=== PATIENT | male | born 1945 | race African-American/Black ===

== ENCOUNTER → 2016-10-02 | Outpatient (CLI) | payer OTHER ==
[2016-10-02 20:44] LABS: INR 1.35
== END ==
LOC: M WUC 18:15
PROVIDERS: ATTEND Physician Assistant
DX: Z51.81 Encounter for therapeutic drug level monitoring (principal); Z79.01 Long term (current) use of anticoagulants; I51.9 Heart disease, unspecified

== ENCOUNTER 2017-04-20 13:34 | Outpatient (RCR) | payer MEDICARE, OTHER | END 2017-04-25 | LOC: M CR 13:34 | DX: Z51.89 Encounter for other specified aftercare (principal); I50.9 Heart failure, unspecified | CPT/HCPCS: 93798 ==

== ENCOUNTER → 2017-12-26 | Outpatient (CLI) | payer MEDICARE ==
[2017-12-26 12:42] LABS: ANION GAP 10 MEQ/L (8-16); BLOOD UREA NITROGEN 19 MG/DL (7-18); CALCIUM LEVEL 9.1 MG/DL (8.8-10.2); CARBON DIOXIDE LEVEL 25 MEQ/L (21-32); CHLORIDE LEVEL 109 MEQ/L (98-107); CHOLESTEROL LEVEL 100 MG/DL (<200); CHOLESTEROL RISK RATIO 3.448 (<5); CREATININE FOR GFR 1.23 MG/DL (0.70-1.30); GLOMERULAR FILTRATION RATE > 60.0 (>42); GLUCOSE, FASTING 86 MG/DL (70-100); HDL CHOLESTEROL 29 MG/DL (>40); LDL CHOLESTEROL 56 MG/DL (<100); NON-HDL-C 71 MG/DL; POTASSIUM SERUM 4.6 MEQ/L (3.5-5.1); SODIUM LEVEL 144 MEQ/L (136-145); TRIGLYCERIDES LEVEL 76 MG/DL (<150)
== END ==
LOC: M LAB 10:56
DX: E78.2 Mixed hyperlipidemia (principal)
CPT/HCPCS: 80061

== ENCOUNTER → 2018-03-11 | Outpatient (CLI) | payer MEDICARE ==
[~2018-03-11] MED LIST: ASPI81TA85 PO; ELIQ5TAB PO; FERR325T3 PO; LASI40TA9 PO; LISI-542 PO; METO1TAB32 PO
[2018-03-11 18:44] LABS: BLOOD UREA NITROGEN 22 MG/DL (7-18); CALCIUM LEVEL 8.3 MG/DL (8.8-10.2); CARBON DIOXIDE LEVEL 27 MEQ/L (21-32); CHLORIDE LEVEL 104 MEQ/L (98-107); CREATININE FOR GFR 1.17 MG/DL (0.70-1.30); GLOMERULAR FILTRATION RATE > 60.0 (>42); GLUCOSE, FASTING 65 MG/DL (70-100); MAGNESIUM LEVEL 2.3 MG/DL (1.8-2.4); NT-PRO BNP 3659 PG/ML (<125); POTASSIUM SERUM 4.1 MEQ/L (3.5-5.1); SODIUM LEVEL 140 MEQ/L (136-145)
== END ==
LOC: M LAB 16:30
DX: I50.43 Acute on chronic combined systolic (congestive) and diastolic (congestive) heart failure (principal)

== ENCOUNTER → 2018-03-22 | Outpatient (REF) | payer MEDICARE ==
[2018-03-22 12:37] LABS: APPEARANCE, URINE CLEAR (CLEAR); BACTERIA, URINE AUTO NEGATIVE (NEGATIVE); BILIRUBIN, URINE AUTO NEGATIVE (NEGATIVE); BLOOD, URINE BLOOD NEGATIVE (NEGATIVE); COLOR, URINE STRAW (YELLOW); GLUCOSE, URINE (UA) AUTO NEGATIVE (NEGATIVE); KETONE, URINE AUTO NEGATIVE (NEGATIVE); LEUKOCYTE ESTERASE, URINE AUTO NEGATIVE (NEGATIVE); MUCUS, URINE SMALL (NEGATIVE); NITRITE, URINE AUTO NEGATIVE (NEGATIVE); PROTEIN, URINE AUTO NEGATIVE (NEGATIVE); RBC, URINE AUTO 2 /HPF (0-3); SPECIFIC GRAVITY URINE AUTO 1.006 (1.002-1.035); SQUAMOUS EPITHELIAL CELL UR AU 0 /HPF (0-6); UROBILINOGEN, URINE AUTO 0.2 mg/dL (0.0-2.0); WBC, URINE AUTO 1 /HPF (0-3)
== END ==
LOC: M LAB REF 12:20
PROVIDERS: ATTEND Physician Assistant Medical
DX: N39.0 Urinary tract infection, site not specified (principal)

== ENCOUNTER → 2018-06-27 | Outpatient (CLI) | payer MEDICARE ==
[2018-06-27 16:01] LABS: CALCIUM LEVEL 8.2 MG/DL (8.8-10.2); CREATININE FOR GFR 1.52 MG/DL (0.70-1.30); GLOMERULAR FILTRATION RATE 58.5 (>42); POTASSIUM SERUM 4.8 MEQ/L (3.5-5.1)
== END ==
LOC: M LAB 14:57
PROVIDERS: ATTEND Internal Medicine Cardiovascular Disease
DX: I50.9 Heart failure, unspecified (principal)

== ENCOUNTER 2018-08-30 15:05 | Outpatient (RCR) | payer MEDICARE ==
[2018-08-06 14:46] VITALS: BP 95/64
[2018-08-06 16:11] LABS: HEMATOCRIT 29.8 % (42.0-52.0); HEMOGLOBIN 8.8 g/dl (13.5-17.5); LYMPH % 9.9 % (24.0-44.0); MEAN CORPUSCULAR HGB CONC 29.5 g/dl (32.0-36.5); MEAN CORPUSCULAR VOLUME 91.5 fl (80.0-96.0); NEUTROPHILS # 36.5 10^3/uL (1.8-7.7); NEUTROPHILS % 61.9 % (36.0-66.0); RED BLOOD COUNT 3.26 10^6/uL (4.30-6.10)
[2018-08-06 16:37] LABS: PERCENT SATURATION 5.7 % (19.7-50.0)
--- NOTE | 2018-08-19 14:26 | MEDONC ---
MEDICAL ONCOLOGY INITIAL VISIT: DATE OF SERVICE: 08/06/2018 REFERRING PHYSICIAN: MARY Baldwin [facility]. DIAGNOSIS: Chronic myelomonocytic leukemia diagnosed on recent CHF exacerbation hospitalization at [facility] referred to [place] for further care. HISTORY OF PRESENT ILLNESS: Kieran Boland is a 72-year-old man with ischemic cardiomyopathy, CHF with ejection fraction 30% and NYHA class IV heart failure, status post ICD and PPM, atrial fibrillation on anticoagulation, CAD status post CABG in 1999, hypertension, chronic renal insufficiency who in mid June was transported to [facility] for further evaluation of chest pain which started 07/13/2018 radiating from the middle of the chest through his back and associated with shortness of breath. On admission at [facility], he was noted to have WBC 22; it damaris to 31 on 07/16/2018 with monocytosis 44%. Workup at [facility] included peripheral blood flow cytometry showing leukocytosis, monocytosis and a mean of phenotypically aberrant atypical and immature form. Bone marrow biopsy 07/23/2018 showed a hypercellular marrow with MDS/myeloproliferative neoplasm features including, 7% blasts, 2% promyelocytes, consistent with chronic myelomonocytic leukemia. Iron stores were absent. 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 Trisomy 13 is frequently associated with RUNX1 mutation and over expression of FLT3. This t (3;13) (q13 - 21; q12) observed in this specimen appears to be similar to the t (3; 13) (q 13; q12) resulting in the rearrangement of FLT3 reported in literature in a patient with MPN - Eo in BMBX and T-cell lymphoma blastic lymphoma in LN. Correlation with concurrent homeopath report suggested". Mr. Boland was cardiac optimized and, of course, transferred to [place] for further care. He is accompanied today by his call center operations manager, a retired nurse. Mr. Boland has no primary care physician. He has traveled to [place] for his cardiology care and through that [place] office gets prescriptions filled, he reports. His call center operations manager describes his daily activity is limited. Mr. Boland says his leg swelling and shortness of breath is much improved since leaving the hospital. During the hospitalization he was evaluated by Derrick Kc D.M.D. of [facility] who recommended he have further hematology oncology care. PAST MEDICAL HISTORY: CHF, ejection fraction 30%, NYHA class 3, CAD status post CABG 2000, ischemic cardiomyopathy, hypertension. Status post ICD and PPM, atrial fibrillation on Xarelto leukocytosis, chronic renal insufficiency. PAST SURGICAL HISTORY: CABG 2009. Stent placement 2011. AICD placement 2013. Colonoscopy 2019. Golf ball sized polyps at [facility]. ALLERGIES: No known drug allergies. MEDICATIONS: - amiodarone 200 mg 2 tablets daily - apixaban 5 mg daily - aspirin 81 mg daily - atorvastatin 40 mg daily - lisinopril 5 mg 1/2 tablet daily - metoprolol 25 mg b.i.d. - metoprolol 50 mg daily - pantoprazole 40 mg daily - torsemide 20 mg daily FAMILY HISTORY: Negative for malignancy. SOCIAL HISTORY: Retired, lives with Becky Lockwood. Former smoker. Denies current alcohol use. REVIEW OF SYSTEMS: 12-system written review completed by the patient positive for increased recent fatigue recent and decreased eyesight loss of hearing exertional chest pain and or dyspnea. Remainder of 12-system written review is negative. PHYSICAL EXAMINATION: Weight 70 kg, BMI 26, temperature 97.2, blood pressure 95/64, heart rate 58, respiratory 18, O2 sat 91% on room air. The patient is a slender well-groomed older gentleman in no distress but prefers to recline on the examining table. Respiratory: No basilar crackles appreciated. Cardiac: S1, S2 irregular. Abdomen: Soft, nontender, no palpable splenomegaly or mass. Extremities: Trace pedal edema bilaterally. Lymph nodes: No palpable submandibular, cervical, supraclavicular or axillary adenopathy bilaterally. LABORATORY DATA: CBC, CMP pending. IMPRESSION: Kieran Boland is a 72-year-old man with advanced cardiovascular comorbidities including the ischemic cardiomyopathy with recent CHF exacerbation, ejection fraction reportedly, with new leukocytosis and bone marrow biopsy showing hypercellular marrow atypical 47XY translocation (3; 13) on cytogenetics concerning for an FLT mutation type cytogenetic under pinning, 7% blasts on bone marrow flow. The overall picture most consistent with a chronic myelomonocytic leukemia with possible evolution beginning revolution to acute myelogenous leukemia. I explained to Mr. Boland that chronic myelomonocytic leukemia is largely untreatable and an incurable process. In a fit patient, stem cell/bone marrow transplant is treatment of choice. Mr. Boland clearly does not meet this criteria based on his cardiovascular disease, treatment is palliative. Hydroxyurea could be introduced with rising leukocytosis. Hypomethylating agent such as azacitidine are decitabine are sometimes used but given Mr. Boland overall frailty I would be concerned about introducing the cytopenias these drugs can be associated with. Frequent infections can occur. They can be treated with antibiotics. I spoke frankly with Mr. Boland about CML having a very poor prognosis an observation being our initial approach. I also recommended strongly that he connect with a attending anesthesiologist locally and a PCP. He has reservations about local physicians but I tried to persuade him given his age, relative frailty and now complicating new hematologic problem, local care may make more sense. 1. Referral to [facility] for cardiology care. 2. Return to clinic 1 week with repeat CBC to assess tempo of leukocytosis. Electronically Signed by Alexia Ramírez MD 08/19/2018 05:02 P DD: Alexia Ramírez MD 08/16/2018 05:07 P DT: daniel 08/19/2018 01:43 P CC: MD Fátima Sams PA-C
[~2018-08-30] VITALS: Ht 163.8 cm; Wt 73.0 kg
[~2018-08-30 15:05] MED LIST changes: +AMIO200T PO; +ATOR40TA75 PO; +METO1TAB7 PO; +PANT40TA3 PO; +TORS20TA2 PO
[2018-08-30 15:18] VITALS: BP 97/55
[2018-08-30] MEDS ORDERED: LIDO1PAD TOP (15:27)
[2018-08-30] MEDS ORDERED: ZYLO300T6 PO (15:27)
[2018-08-30] MEDS ORDERED: RENV2TAB PO (15:27)
[2018-08-30] MEDS ORDERED: LORA-622 PO (15:31)
[2018-08-30] MEDS ORDERED: HYDR500C3 PO (16:37)
[2018-08-30 16:55] LABS: BASO # 0.1 10^3/uL (0.0-0.2); BASO % 0.2 % (0.0-1.0); EOS # 0.3 10^3/uL (0.0-0.50); HEMATOCRIT 26.7 % (42.0-52.0); LYMPH # 1.7 10^3/uL (1.5-4.5); LYMPH % 5.2 % (24.0-44.0); MEAN CORPUSCULAR HEMOGLOBIN 28.5 pg (27.0-33.0); MONO % 69.6 % (0.0-5.0); NEUTROPHILS # 7.2 10^3/uL (1.8-7.7); NEUTROPHILS % 21.9 % (36.0-66.0); RED BLOOD COUNT 2.81 10^6/uL (4.30-6.10)
[2018-08-30 17:22] LABS: ALBUMIN 2.7 GM/DL (3.2-5.2); CALCIUM LEVEL 8.6 MG/DL (8.8-10.2); CREATININE FOR GFR 2.26 MG/DL (0.70-1.30); POTASSIUM SERUM 3.4 MEQ/L (3.5-5.1); TOTAL PROTEIN 7.8 GM/DL (6.4-8.2)
[2018-08-30 17:24] LABS: PLATELET COUNT, AUTOMATED 53 10^3/uL (150-450)
--- NOTE | 2018-08-31 14:47 | MEDONC ---
MEDICAL ONCOLOGY FOLLOWUP : DATE OF SERVICE: 08/30/2018 DIAGNOSIS: Acute myeloblastic leukemia, FLT3 positive positive, evolution from chronic myelomonocytic leukemia diagnosed 06/2018 at [facility], hypercellular marrow, 7% blasts. Status post trial of azacitidine at [facility] where hospitalized 08/23 - 08/29, poorly tolerated. Discharged on hydroxyurea 500 mg daily. OTHER MEDICAL PROBLEMS: CHF, ejection fraction 30%. CAD status post CABG 2009, stents, AICD 2013. Chronic renal insufficiency. Atrial fibrillation on anticoagulation. INTERVAL HISTORY: Kieran was hospitalized at [facility] seen on the BMT / leukemia unit started on azacitidine after being determined to have FLT3 positive AML. He apparently azacitidine well developing significant cytopenias. He has had a transfusion requirement of 1 unit approximately every 10 days. I have spoken with Rosana Martin MD of the transplant service and confirmed he was discharged with the intention of being on hydroxyurea 500 mg daily. However, did not receive a prescription. He is also on allopurinol 300 mg daily. CBC on discharge showed hemoglobin/hematocrit 7.7 and 26 respectively, platelets 49, WBC 15.6. BM BX at [facility] apparently showed 43% blasts, a change from the bone marrow biopsy done at [facility] in June. TREATMENT CONSIDERATIONS: Mr. Jarrell Boland have included azacitidine single agent, azacitidine with sorafenib but, his comorbidities are limiting tolerance of side effects. Today Kieran was accompanied by his liquid sugar melter. He is philosophical a little bit distracted. He is interested to know about the rash on his face. There is a bumpy non erythematous non coalesced non blanching rash involving his cheeks primarily excluding his trunk, arms, legs palms and soles. He has some ankle edema. He is aware of his diagnosis and prognosis. Much of today was spent trying to sort out the discharge intention at [place] with and Dr. Martin was extremely helpful in clarifying. REVIEW OF SYSTEM: No fevers or chills, decrease in appetite, some left upper quadrant discomfort relieved by Tylenol extra strength. 1+ pedal edema ankles, limiting fluid intake. No new shortness of breath but definitely increased fatigue. No diffuse body rash. No bruising or bleeding. Remainder of 12 system review negative. PHYSICAL EXAMINATION: Weight 73 kg, temperature 98, blood pressure 97/55, heart rate 94, respiratory 18, O2 sat 96%, heart, lung, abdomen exam deferred. Extremities: On observation with 1+ pitting edema. LABORATORY DATA: CBC stat CMP pending. IMPRESSION: 1. FLT-3 positive AML, 43% blasts on bone marrow biopsy [facility], status post hospitalization for CHF exacerbation, renal insufficiency, trial of azacitidine poorly tolerated now on hydroxyurea 500 mg with improvement of leukocytosis current WBC 15 as of 2 days. 2. Transfusion dependent approximately every 10 days. 3. CHF, EF 30%. PLAN: 1. I refilled hydroxyurea 500 mg daily with five refills. 2. CBC type and cross stat CMP today. If hemoglobin has dropped significantly below 7.7, referral to ER immediately for transfusion; otherwise scheduled transfusion 1 unit with 20 mg IV push Lasix following for early next week. 3. The patient will be seen at by Dr. Martin on his regularly scheduled visit in [place] where he accompanies his liquid sugar melter for dialysis. 4. Midweek return next week to assess overall tolerance of hydroxyurea white count RBC and platelets. 5. Dr. Martin discussed the possibility of trying azacitidine and or sorafenib and or venetoclax but cautioned this would probably need to be done in the inpatient setting. Because of limited blood bank turn around time here, absence of oncology unit or hematology team inpatient it may make sense for any such trial to occur only at [place] under Dr. Martin and her colleagues. Time statement: 40 minutes [id number] with the patient more than 50% involving counseling. Clarifying medications coordinating care answering the patient's questions reviewing medication plan. I also addressed prognosis quality of life and treatment goal. Electronically Signed by Alexia Ramírez MD 09/02/2018 05:05 P DD: Alexia Ramírez MD 08/30/2018 04:47 P DT: [email or web address] 08/31/2018 02:19 P CC: MD Fátima Sams PA-C Kristen O'Dwyer, MD
[2018-09-03] MEDS ORDERED: FUROSEMIDE 40 MG/4 ML VIAL (J1940) IV ONE (08:30)
--- NOTE | 2018-09-18 08:52 | MEDONCTEEN ---
MEDICAL ONCOLOGY TELEPHONE NOTE DATE OF SERVICE: 09/16/2018 The patient's tugboat mate Christelle Lockwood, , called to report that despite recent essentially stable labs Mr. Boland has developed rapid onset/progressive inability to walk over the last 2 days with increased leg swelling. He has multiple medical problems. I recommended emergency room transport as an immediate step. Ms. Lockwood expressed skepticism about [facility]. I again recommended the most nearby emergency room as where he should probably be evaluated rapidly. She may take him to [place]. She is not sure. He was recently started on treatment in [place] for FLT3 positive secondary AML, begun on azacitidine but poorly tolerated, then continuing hydroxyurea 500 mg daily. By the patient's tugboat mate's report, recent CBC included WBC 62, hemoglobin 8.6, platelets 128. This reflects some progression though WBC in early July was 59. Platelet count actually improved versus most recent on August 30 when it was 53, hemoglobin stable versus August 30 when it was 8. I strongly recommended emergency room assessment. Ms. Lockwood will think through things but try to get him seen either locally or in [place]. Electronically Signed by Alexia Ramírez MD 09/18/2018 05:34 P DD: Alexia Ramírez MD 09/16/2018 03:46 P DT: [email or web address] 09/18/2018 08:46 A CC:
== END 2018-08-30 17:33 | disposition home or self-care (01) ==
LOC: M ONCM 15:05
PROVIDERS: ATTEND Internal Medicine Medical Oncology
DX: C93.10 Chronic myelomonocytic leukemia not having achieved remission (principal); I25.5 Ischemic cardiomyopathy; I25.10 Atherosclerotic heart disease of native coronary artery without angina pectoris; I13.0 Hypertensive heart and chronic kidney disease with heart failure and stage 1 through stage 4 chronic kidney disease, or unspecified chronic kidney disease; I50.9 Heart failure, unspecified; N18.9 Chronic kidney disease, unspecified; I48.91 Unspecified atrial fibrillation; Z79.01 Long term (current) use of anticoagulants; Z79.82 Long term (current) use of aspirin; Z79.899 Other long term (current) drug therapy; Z95.810 Presence of automatic (implantable) cardiac defibrillator; Z95.1 Presence of aortocoronary bypass graft
CPT/HCPCS: 36415; 80053; 82728; 83550; 85027; 85049; 85055; 86850; 86900; 86901; 86920; G0463

== ENCOUNTER 2018-09-04 14:14 | Outpatient (CLI) | payer MEDICARE ==
[~2018-09-04] VITALS: Ht 165.1 cm; Wt 73.0 kg
[~2018-09-04 14:14] MED LIST changes: +HYDR500C3 PO; +LIDO1PAD TOP; +LORA-622 PO; +RENV2TAB PO; +ZYLO300T6 PO
[2018-09-04] MEDS ORDERED: FUROSEMIDE 20 MG/2 ML VIAL (J1940) IV ONE (15:15)
[2018-09-04 15:42] VITALS: BP 84/52
[2018-09-04 16:45] VITALS: BP 98/56
[2018-09-04 18:31] VITALS: BP 100/51
== END 2018-09-04 18:45 | disposition home or self-care (01) ==
LOC: M INFU 14:14
PROVIDERS: ATTEND Internal Medicine Medical Oncology
DX: C92.00 Acute myeloblastic leukemia, not having achieved remission (principal)
CPT/HCPCS: 36415; 36430; 86850; 86900; 86901; 86920; 96374; J1940; P9016